=== PATIENT | male | born 1980 | race Caucasian/White ===

== ENCOUNTER 2018-04-05 12:17 | Emergency (ER) | payer OTHER ==
--- NOTE | 2018-04-05 13:13 | ED ---
Adult Trauma - HPI Summary HPI Summary: Patient here with fall from height prior to arrival. He is 6'2" and fell backward while standing on the fourth rung of a 6 foot ladder, hit his head from a distance approximately 8 feet above the ground. He reports he was on this ladder when is slipped in the mud beneath him and he fell straight back onto his head. He was wearing a hardhat. Denies loss of consciousness, headache, visual change, nausea, vomiting, epistaxis, dental fracture, numbness , tingling, weakness. He does however have acute posterior neck pain radiating into his left shoulder. He has not taken anything for pain prior to arrival. 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 Otherwise healthy and does not take any medications. - History of Current Complaint Chief Complaint: EDNeckComplaint Stated Complaint: FALL Time Seen by Provider: 04/05/18 12:27 Hx Obtained From: Patient Pain Intensity: 8 - Allergy/Home Medications Allergies/Adverse Reactions: Allergies Allergy/AdvReac Type Severity Reaction Status Date / Time Penicillins Allergy Hives Verified 04/05/18 12:25 PMH/Surg Hx/FS Hx/Imm Hx Previously Healthy: Yes Endocrine/Hematology History: Denies: Hx Anticoagulant Therapy, Hx Blood Disorders, Hx Unexplained Bleeding Cardiovascular History: Denies: Hx Aneurysm Infectious Disease History: No Infectious Disease History: Denies: Traveled Outside the [place] in Last 30 Days - Social History Occupation: Employed Full-time - construction Alcohol Use: None Alcohol Amount: quit 4 years ago Hx Substance Use: No Substance Use Type: Reports: None Smoking Status (MU): Unknown if Ever Smoked Review of Systems Constitutional: Negative Eyes: Negative ENT: Negative Negative: Chest Pain Negative: Vomiting, Nausea Positive: no symptoms reported Positive: Arthralgia, Myalgia. Negative: Decreased ROM, Edema Skin: Negative Neurological: Negative Psychological: Normal All Other Systems Reviewed And Are Negative: Yes Physical Exam Triage Information Reviewed: Yes Vital Signs On Initial Exam: Initial Vitals Temp Pulse Resp BP Pulse Ox 99.3 F 67 15 159/93 98 04/05/18 12:18 04/05/18 12:18 04/05/18 12:18 04/05/18 12:18 04/05/18 12:18 Vital Signs Reviewed: Yes Appearance: Positive: Well-Appearing, Well-Nourished, Pain Distress - mild - appears comfortable sitting in recliner w/ C-collar in place Skin: Positive: Warm, Skin Color Reflects Adequate Perfusion, Dry Head/Face: Positive: Normal Head/Face Inspection - atraumatic Eyes: Positive: Normal, EOMI, MORELIA - no photophobia, Conjunctiva Clear ENT: Positive: Normal ENT inspection, Hearing grossly normal, Pharynx normal - mucosa moist - atraumatic Dental: Negative: Dental Fracture @ Neck: Positive: Other: - limited - in C-collar Respiratory/Lung Sounds: Positive: Breath Sounds Present Cardiovascular: Positive: Normal Abdomen Description: Positive: Soft Musculoskeletal: Positive: Normal, Strength/ROM Intact, Pain @ - Lt trapezius mm w/ TTP Neurological: Positive: Normal, Sensory/Motor Intact, Alert, Oriented to Person Place, Time, CN Intact II-III Psychiatric: Positive: Normal Diagnostics - Vital Signs Vital Signs Temp Pulse Resp BP Pulse Ox 04/05/18 12:18 99.3 F 67 15 159/93 98 - Laboratory Lab Statement: Any lab studies that have been ordered have been reviewed, and results considered in the medical decision making process. Adult Trauma Course/Dx - Course Course Of Treatment: CT brain and cervical spine w/o acute pathology - C5-6 w/ DDD. - Diagnoses Provider Diagnoses: Fall from height of greater than 3 feet, Cervical strain, acute, Head injury Discharge - Sign-Out/Discharge Documenting (check all that apply): Patient Departure - Discharge Plan Condition: Stable Disposition: HOME Patient Education Materials: Head Injury (ED), Cervical Strain (ED) Forms: *Work Release Referrals: Care [facility] [Outside] Additional Instructions: Rest Alternate ice with heat and gentle stretches You may also take ibuprofen 600mg every 6 hours alternating with acetaminophen extra strength every 6 hours for pain as needed Stay hydrated and avoid chemicals that may alter your mental status so that you may monitor for signs of concussion over the next 24-48 hours. Follow-up with PCP next week to recheck symptoms. *If you feel worse in the meantime, return to ED - Billing Disposition and Condition Condition: STABLE Disposition: Home
[2018-04-05] MEDS ORDERED: Ibuprofen TAB* 800 MG PO ONE (13:47)
[2018-04-05 13:59] VITALS: BP 115/77
== END 2018-04-05 13:58 | disposition home or self-care (01) ==
LOC: ED 12:17
DX: S16.1XXA Strain of muscle, fascia and tendon at neck level, initial encounter (principal); S09.90XA Unspecified injury of head, initial encounter; W11.XXXA Fall on and from ladder, initial encounter; Y92.9 Unspecified place or not applicable; Z88.0 Allergy status to penicillin; M50.322 Other cervical disc degeneration at C5-C6 level; M50.323 Other cervical disc degeneration at C6-C7 level
CPT/HCPCS: 70450; 72125; 99282; A9270-GY